=== PATIENT | male | born 1980 | race Caucasian/White ===

== ENCOUNTER 2021-08-12 21:44 | Emergency (ER) | payer BC ==
--- NOTE | 2021-08-12 22:05 | EDM.PDOC ---
ED HPI GENERAL MEDICAL PROBLEM - General Chief Complaint: Genitourinary Problem Stated Complaint: SWOLLEN TESTICLE Time Seen by Provider: 08/12/21 21:56 - History of Present Illness INITIAL COMMENTS - FREE TEXT/NARRATIVE: History of present illness: [] Patient is swelling the right testicle. It started approximately 3 PM. The pain started about an hour or 2 before he arrived. He has had it before was given a shot and told his testicles not twisted and the blood flow is okay. Patient has trouble with an intermittent stream of urine and hesitancy. He does not have pus bladder pain in his with urination. Review of systems: As per history of present illness and below otherwise all systems reviewed and negative. Past medical history: As per history of present illness and as reviewed below otherwise noncontributory. Surgical history: As per history of present illness and as reviewed below otherwise noncontributory. Social history: No reported history of drug or alcohol abuse. Family history: As per history of present illness and as reviewed below otherwise noncontributory. Physical exam: Constitutional - well developed, well-nourished and in no acute distress HEENT - normocephalic, no evidence of trauma - external nose and mouth normal - no mass in neck and no JVD - mucosae moist EYES - full EOM, PERRL, no icterus - no evidence of inflammation, injection, or drainage Respiratory - no respiratory distress, equal bilateral expansion normal external genitalia except the right testicle is slightly swollen diffusely and exquisitely tender. Its not discolored. Neurologic - Alert and oriented times four - CN II-XII grossly intact - motor sensory and coordination symmetrically normal Psychiatric - appropriate mood and affect with normal thought content Hematologic - No petechiae or purpura - mucosa appropriate color and sclera not pale - normal nail bed color and refill Integument - no rash or evidence of trauma - normal turgor Diagnostics: [] Therapeutics: [] Impression: [] Plan: [] Definitive disposition and diagnosis as appropriate pending reevaluation and review of above. Right Scrotum Pain Score (Numeric/FACES): 6 - Related Data Allergies Allergy/AdvReac Type Severity Reaction Status Date / Time No Known Allergies Allergy Verified 05/08/15 08:56 Home Meds: Home Meds Doxycycline [Vibramycin] 100 mg PO BID #14 tab 08/13/21 [Rx] Past Medical History - Past Health History Medical/Surgical History: Denies Medical/Surgical History Social & Family History - Recreational Drug Use Recreational Drug Use: No ED ROS GENERAL - Review of Systems Review Of Systems: Comprehensive ROS is negative, except as noted in HPI. ED EXAM, GENERAL - Physical Exam Exam: See Below Free Text/Narrative:: My physical exam is in the HPI Course - Vital Signs Last Recorded V/S: Last Vital Signs Temp 36.9 C 08/12/21 21:48 Pulse 75 08/12/21 23:43 Resp 16 08/12/21 23:43 BP 148/80 H 08/12/21 23:43 Pulse Ox 97 08/12/21 23:43 - Orders/Labs/Meds Orders: Active Orders 24 hr Category Date Time Status Scrotal Duplex Ltd [US] Routine Exams 08/12/21 22:30 Taken CHLAMYDIA AND GONORRHEA BY [facility] Stat Lab 08/12/21 22:00 Ordered Ketorolac [Toradol] Med 08/13/21 00:04 Once 30 mg IM ONETIME ONE Labs: Laboratory Tests 08/12/21 Range/Units 23:15 Urine Color YELLOW Urine Appearance CLEAR Urine pH 6.5 (5.0-8.0) Ur Specific [place] 1.020 (1.001-1.035) Urine Protein NEGATIVE (NEGATIVE) mg/dL Urine Glucose (UA) NEGATIVE (NEGATIVE) mg/dL Urine Ketones NEGATIVE (NEGATIVE) mg/dL Urine Occult Blood NEGATIVE (NEGATIVE) Urine Nitrite NEGATIVE (NEGATIVE) Urine Bilirubin NEGATIVE (NEGATIVE) Urine Urobilinogen 0.2 (<2.0) EU/dL Ur Leukocyte Esterase NEGATIVE (NEGATIVE) Meds: Medications Discontinued Medications Generic Name Dose Route Start Last Admin Trade Name Freq PRN Reason Stop Dose Admin Ceftriaxone Sodium 500 mg/ 1 mls @ 1 mls/sec 08/13/21 00:03 Lidocaine HCl IM 08/13/21 00:04 ONETIME ONE Departure - Departure Time of Disposition: 00:05 Disposition: Home, Self-Care 01 Condition: Good Clinical Impression: Epididymitis - Discharge Information Instructions: Epididymitis Forms: ED Department Discharge Additional Instructions: Follow-up with primary care. [facility] [address] [place] [id number] [facility] [address] [place] [address] It would be nice since you have had this twice if you were able to give a sample so we can check for infectious causes. The following information is given to patients seen in the emergency department who are being discharged to home. This information is to outline your options for follow-up care. We provide all patients seen in our emergency department with a follow-up referral. The need for follow-up, as well as the timing and circumstances, are variable depending upon the specifics of your emergency department visit. If you don't have a primary care physician on staff, we will provide you with a referral. We always advise you to contact your personal physician following an emergency department visit to inform them of the circumstance of the visit and for follow-up with them and/or the need for any referrals to a consulting specialist. The emergency department will also refer you to a specialist when appropriate. This referral assures that you have the opportunity for follow-up care with a specialist. All of these measure are taken in an effort to provide you with optimal care, which includes your follow-up. Under all circumstances we always encourage you to contact your private physician who remains a resource for coordinating your care. When calling for follow-up care, please make the office aware that this follow-up is from your recent emergency room visit. If for any reason you are refused follow-up, please contact the Emergency Department at and asked to speak to the emergency department charge nurse. Sepsis Event Note (ED) - Evaluation Sepsis Screening Result: No Definite Risk - Focused Exam Vital Signs: Vital Signs Temp Pulse Resp BP Pulse Ox 08/12/21 23:43 75 16 148/80 H 97 08/12/21 22:48 73 16 155/78 H 98 08/12/21 21:48 36.9 C 70 16 160/88 H 98 - My Orders Last 24 Hours: My Active Orders 08/12/21 22:00 CHLAMYDIA AND GONORRHEA BY [facility] Stat 08/12/21 22:30 Scrotal Duplex Ltd [US] Routine 08/13/21 00:04 Ketorolac [Toradol] 30 mg IM ONETIME ONE - Assessment/Plan Last 24 Hours: My Active Orders 08/12/21 22:00 CHLAMYDIA AND GONORRHEA BY TMA Stat 08/12/21 22:30 Scrotal Duplex Ltd [US] Routine 08/13/21 00:04 Ketorolac [Toradol] 30 mg IM ONETIME ONE
--- NOTE | 2021-08-12 23:21 | US ---
INDICATION: Right testicular swelling COMPARISON: None TECHNIQUE: Antonio scale imaging was performed of the scrotum. In addition color Doppler and spectral Doppler analysis was performed of the testes. FINDINGS: The right testis measures 4.8 x 2.5 x 3.6 cm. The left testis measures 4.8 x 2.3 x 3.5 cm. There is normal homogeneous echotexture of both testes. Intact vascular flow is demonstrated to both testes with color and spectral doppler. There is no hydrocele. There is enlargement and hyperemia of the right epididymis, concerning for epididymitis. The left epididymis is unremarkable. IMPRESSION: 1. Enlargement and hyperemia of the right epididymis, concerning for epididymitis. 2. No evidence of testicular torsion. Dictated by John Stokes MD @ 08/12/2021 11:21:01 PM (Electronically Signed)
[2021-08-12 23:44] VITALS: PULSE 75
[2021-08-13] MEDS ORDERED: cefTRIAXone 500 MG in Lidocaine 1% 1 ML IM ONE (00:03)
[2021-08-13] MEDS ORDERED: Ketorolac 30 MG/ML SDV IM ONE (00:04)
[2021-08-13 00:18] VITALS: BP 135/75
== END 2021-08-13 00:18 | disposition home or self-care (01) ==
LOC: MW.ED 21:44
DX: N45.1 Epididymitis (principal)
CPT/HCPCS: 76870; 81003; 93976; 96372; 99284; J0696; J1885

== ENCOUNTER 2021-10-04 01:08 | Emergency (ER) | payer BC ==
[2021-10-04 01:17] VITALS: BP 142/85; PULSE 77
[2021-10-04] MEDS ORDERED: cefTRIAXone 500 MG in Lidocaine 1% 1 ML IM ONE (01:30)
== END 2021-10-04 01:43 | disposition home or self-care (01) ==
LOC: MW.ED 01:08
DX: N45.1 Epididymitis (principal)
CPT/HCPCS: 96372; 99283; J0696

== ENCOUNTER 2022-04-18 14:04 | Emergency (ER) | payer BC ==
[2022-04-18] MEDS ORDERED: Ondansetron 4 MG/2 ML SDV IVPUSH ONE (14:18)
[2022-04-18] MEDS ORDERED: Sodium Chloride 0.9% 1,000 ML IV ONE (14:18)
[2022-04-18] MEDS ORDERED: fentaNYL 50 MCG/ML SDV IVPUSH ONE (14:18)
[2022-04-18 16:47] VITALS: BP 152/83; PULSE 96
== END 2022-04-18 16:55 | disposition home or self-care (01) ==
LOC: MW.ED 14:04
DX: S06.0X9A Concussion with loss of consciousness of unspecified duration, initial encounter (principal); S42.025A Nondisplaced fracture of shaft of left clavicle, initial encounter for closed fracture; F17.210 Nicotine dependence, cigarettes, uncomplicated; Z79.899 Other long term (current) drug therapy; W11.XXXA Fall on and from ladder, initial encounter
CPT/HCPCS: 70450; 71045; 72125; 73000; 73030; 96374; 96375; 99284; J2405; J3010; J7030; 99291

== ENCOUNTER 2022-04-30 06:17 | Day surgery (SDC) | payer OTHER, BC ==
[~2022-04-30 06:17] MED LIST: Albuterol 0.083% 2.5 MG/3 ML Neb Soln NEB PRN; HYDROmorphone 1 MG/ML Syringe IVPUSH PRN; Lactated Ringers 1,000 ML IV SCH; Lidocaine 2% 5 ML SDV ONE; Metoclopramide 10 MG/2 ML SDV IVPUSH PRN; Morphine 4 MG/ML VIAL IVPUSH PRN; Naloxone 0.4 MG/ML SDV IVPUSH PRN; Ondansetron 4 MG/2 ML SDV IVPUSH PRN; Ropivacaine 0.5% 5 MG/ML 30 ML SDV ONE; ceFAZolin 2 GM in Premix Bag 1 BAG IV SCH; fentaNYL 50 MCG/ML SDV IVPUSH PRN
[2022-04-30] MEDS ORDERED: Dexmedetomidine 200 MCG/2 ML SDV ONE ×2 (06:22→06:41)
[2022-04-30] MEDS ORDERED: Water For Injection, Sterile 20 ML ONE (06:22)
[2022-04-30] MEDS ORDERED: Bupivacaine 0.25%/EPINEPHrine 1:200,000 10 ML SDV ONE (06:29)
[2022-04-30] MEDS ORDERED: Propofol 200 MG/20 ML SDV ONE (06:41)
[2022-04-30] MEDS ORDERED: fentaNYL 100 MCG/2 ML SDV ONE (06:41)
[2022-04-30] MEDS ORDERED: Rocuronium Bromide 50 MG/5 ML Syringe ONE (06:42)
[2022-04-30] MEDS ORDERED: ceFAZolin/Dextrose,Iso-Osmotic 2 GM/50 ML Duplex Bag (Premix) ONE (08:15)
[2022-04-30] MEDS ORDERED: Dexamethasone 4 MG/ML 5 ML MDV ONE (08:57)
[2022-04-30] MEDS ORDERED: Phenylephrine 1% 10 MG/ML SDV ONE (08:57)
[2022-04-30] MEDS ORDERED: Succinylcholine/Sod PF 100 MG/5 ML SYRINGE IV ONE (09:02)
[2022-04-30] MEDS ORDERED: Ketorolac 30 MG/ML SDV ONE (09:02)
[2022-04-30] MEDS ORDERED: Ondansetron 4 MG/2 ML SDV ONE (09:02)
[2022-04-30 10:42] VITALS: BP 117/54; PULSE 81
== END 2022-04-30 11:15 | disposition home or self-care (01) ==
LOC: MW.SDS 06:17
PROVIDERS: ATTEND Orthopaedic Surgery
DX: S42.002A Fracture of unspecified part of left clavicle, initial encounter for closed fracture (principal); N45.1 Epididymitis; Z98.890 Other specified postprocedural states; V89.2XXA Person injured in unspecified motor-vehicle accident, traffic, initial encounter; Z79.899 Other long term (current) drug therapy
CPT/HCPCS: 23515; J0131; J0330; J0690; J1100; J1885; J2370; J2405; J2704; J2795; J3010; J3490; J7120

== ENCOUNTER 2022-05-12 19:17 | Emergency (ER) | payer BC | END 2022-05-12 19:55 | disposition left against medical advice (07) | LOC: MW.ED 19:17 | DX: Z53.21 Procedure and treatment not carried out due to patient leaving prior to being seen by health care provider (principal) ==

== ENCOUNTER 2024-03-10 04:16 | Emergency (ER) | payer SELFPAY ==
[2024-03-10 04:47] VITALS: BP 153/96
[2024-03-10 04:48] VITALS: PULSE 78
== END 2024-03-10 04:40 ==
LOC: MW.ED 04:16
DX: Z02.89 Encounter for other administrative examinations (principal)
CPT/HCPCS: 99283

== ENCOUNTER 2024-03-13 11:56 | Emergency (ER) | payer SELFPAY ==
[2024-03-13 12:26] LABS: BASOPHILS ABSOLUTE AUTO 0.06 K/uL (0.00-0.20); BASOPHILS PERCENT AUTO 1.1 % (0.0-1.0); EOSINOPHILS ABSOLUTE AUTO 0.24 K/uL (0.00-0.45); EOSINOPHILS PERCENT AUTO 4.3 % (0.0-6.0); HEMATOCRIT 43.6 % (42.0-52.0); HEMOGLOBIN 15.3 g/dL (14.0-18.0); IMMATURE GRAN ABSOLUTE AUTO 0.01 K/uL (0.00-0.05); IMMATURE GRAN PERCENT AUTO 0.2 % (0.0-0.4); LYMPHOCYTES ABSOLUTE AUTO 1.66 K/uL (1.00-4.80); MEAN CORPUSCULAR HEMOGLOBIN 30.1 pg (28.0-32.0); MEAN CORPUSCULAR HGB CONC 35.1 g/dL (32.0-36.0); MEAN CORPUSCULAR VOLUME 85.7 fL (83.0-99.0); MEAN PLATELET VOLUME 9.6 fL (9.4-12.4); MONOCYTES ABSOLUTE AUTO 0.47 K/uL (0.00-0.80); MONOCYTES PERCENT AUTO 8.5 % (0.0-8.0); NEUTROPHILS PERCENT AUTO 55.9 % (41.0-71.0); PLATELET COUNT,PLT 216 K/uL (150-400); RED BLOOD CELL COUNT 5.09 M/uL (4.52-5.90); WHITE BLOOD CELL COUNT,WBC 5.54 K/uL (3.9-11.3)
[2024-03-13 13:08] LABS: A/G RATIO 1.3 (0.9-1.6); BILIRUBIN TOTAL 0.6 mg/dL (0.2-1.0); CARBON DIOXIDE,CO2 27.8 mmol/L (21.0-32.0); EST CRCL DRUG DOSING (CG) 112.67 mL/min; PROTEIN TOTAL,TP 7.1 g/dL (6.4-8.2)
[2024-03-13 14:46] VITALS: BP 126/86; PULSE 66
== END 2024-03-13 14:46 ==
LOC: MW.ED 11:56
DX: R07.9 Chest pain, unspecified (principal); I10 Essential (primary) hypertension; F17.210 Nicotine dependence, cigarettes, uncomplicated; Z75.8 Other problems related to medical facilities and other health care
CPT/HCPCS: 36415; 71045; 71045-26; 80053; 84484; 85025; 85379; 93005; 99285

== ENCOUNTER 2024-09-19 16:44 | Emergency (ER) | payer SELFPAY | END 2024-09-19 17:09 | disposition left against medical advice (07) | LOC: MW.ED 16:44 | DX: Z53.21 Procedure and treatment not carried out due to patient leaving prior to being seen by health care provider (principal) ==